=== PATIENT | female | born 1940 | race Caucasian/White ===

== ENCOUNTER → 2018-09-02 | Outpatient (CLI) | payer MEDICARE ==
--- NOTE | 2018-09-06 10:58 | SLEEPCENT ---
DATE OF PROCEDURE: 09/02/2018 ORDERING PROVIDER: Isabel Oglesby NP Nocturnal polysomnography was performed for retitration of pressure therapy in this patient with obstructive sleep apnea syndrome. For testing, a RespirDiffbot Luana View full face mask of small size was used, 4 cm of water pressure were applied to the circuit, and the lights were extinguished. 7 hours and 13 minutes of data were reviewed. There were 236 minutes of sleep identified. Sleep latency was short at 10 minutes. Rapid eye movement (REM) latency was prolonged at 323 minutes. Sleep architecture improved late in the study. There were two REM cycles noted. Overall sleep efficiency was reduced at 55.5% due to a period of wake in the middle portion of the test. The patient's electrocardiogram showed a sinus rhythm with an average heart rate of 64 beats per minute. Electroencephalogram (EEG) showed some coarsening in background but no focal events. There were normal waveforms for awake and sleep. Respiratory events were fully palliated with CPAP at a pressure of +12. CPAP tolerance appeared reasonably good. IMPRESSION: Obstructive sleep apnea syndrome (G47.33). RECOMMENDATIONS: Nightly use of pressure therapy 12 cm of water.
== END ==
LOC: M SLEEP 19:37
PROVIDERS: ATTEND Nurse Practitioner Adult Health
DX: G47.33 Obstructive sleep apnea (adult) (pediatric) (principal)

== ENCOUNTER → 2021-05-26 | Outpatient (CLI) | payer MEDICARE ==
[~2021-05-26] MED LIST: ASPI81TA26 PO; ATOR1TAB21 PO; B-122500 PO; D31000TA2 PO; DIGO0.253 PO; EZET10TA21 PO; FURO40TA2 PO; METF500T13 PO; METO1TAB7 PO; MM S100C PO; POTA1TAB23 PO; RANO500T2 PO; VITA100T14 PO
--- NOTE | 2021-05-26 17:31 | REP ---
INDICATION: IG6 KANPPA MGUS Multiple myeloma. COMPARISON: None. TECHNIQUE: Adult bone survey including AP views of the pelvis, bilateral humeri and femurs as well as AP/lateral views of the skull, and cervical through lumbosacral spine. FINDINGS: Age-related degenerative changes are noted throughout the visualized osseous structures. Findings are most pronounced involving the cervical spine. No obvious pathologic lytic, sclerotic or blastic lesions are identified. IMPRESSION: No evidence for osseous metastatic/malignant changes appreciated. <Electronically signed by Arian Thorne > 05/26/21 [id number]
== END ==
LOC: M RAD 16:28
PROVIDERS: ATTEND Internal Medicine Medical Oncology
DX: D47.2 Monoclonal gammopathy (principal); M85.80 Other specified disorders of bone density and structure, unspecified site

== ENCOUNTER → 2021-07-10 | Outpatient (REF) | payer MEDICARE ==
[2021-07-10 17:08] LABS: MAGNESIUM LEVEL 2.1 MG/DL (1.8-2.4); PHOSPHORUS LEVEL 3.3 MG/DL (2.5-4.9)
[2021-07-10 17:19] LABS: TOTAL 25(OH) VITAMIN D 39.6 NG/ML (30.0-100.0)
== END ==
LOC: M SFHCRHEU 15:47
PROVIDERS: ATTEND Internal Medicine
DX: M79.10 Myalgia, unspecified site (principal); Z79.899 Other long term (current) drug therapy
CPT/HCPCS: 82306; 82550; 83540; 83735; 84100; G0463

== ENCOUNTER 2023-09-13 09:38 | Day surgery (SDC) | payer MEDICARE ==
[~2023-09-13] VITALS: Ht 175.3 cm; Wt 73.8 kg
[~2023-09-13 09:38] MED LIST changes: +CEFUROXIME 1MG/0.1ML INTRACAMERAL INJ As Ordered ONE; +CYCLOPENTOLATE 1% OPHTH SOLN 2ML BTL OD SCH; -D31000TA2 PO; +ELIQ5TAB PO; +FLURBIPROFEN 0.03% OPHTH SOLN 2.5 ML OD SCH; +IRON65TA2 PO; +LIDOCAINE 1% SDV 5ML VIAL As Ordered ONE; +LOSA25TA13 PO; +LR 1,000 ML IV SCH; +OMEG10002 PO; +PHENYLEPHRINE 2.5% OPHTH SOL 2ML OD SCH; +TETRACAINE 0.5% OPHTH SOLN 4ML OD SCH; +VITA100093 PO
[2023-09-13] MEDS ORDERED: MIDAZOLAM INJ 2MG/2ML VIAL As Ordered ONE (11:44)
[2023-09-13 13:32] VITALS: BP 140/71; TEMP 98.1; O2SAT 100
== END 2023-09-13 14:00 | disposition home or self-care (01) ==
LOC: M SDC 09:38
PROVIDERS: ATTEND Ophthalmology
DX: H25.11 Age-related nuclear cataract, right eye (principal); I48.91 Unspecified atrial fibrillation; I10 Essential (primary) hypertension; E78.5 Hyperlipidemia, unspecified; E11.9 Type 2 diabetes mellitus without complications; Z95.0 Presence of cardiac pacemaker; Z86.73 Personal history of transient ischemic attack (TIA), and cerebral infarction without residual deficits; G47.33 Obstructive sleep apnea (adult) (pediatric); Z79.01 Long term (current) use of anticoagulants; Z79.899 Other long term (current) drug therapy; Z79.84 Long term (current) use of oral hypoglycemic drugs; Z86.16 Personal history of COVID-19
CPT/HCPCS: 66984; J0697; J2250; V2788

== ENCOUNTER 2023-10-04 10:55 | Day surgery (SDC) | payer MEDICARE ==
[~2023-10-04] VITALS: Ht 175.3 cm; Wt 74.5 kg
[~2023-10-04 10:55] MED LIST changes: -CEFUROXIME 1MG/0.1ML INTRACAMERAL INJ As Ordered ONE; -CYCLOPENTOLATE 1% OPHTH SOLN 2ML BTL OD SCH; -FLURBIPROFEN 0.03% OPHTH SOLN 2.5 ML OD SCH; -LIDOCAINE 1% SDV 5ML VIAL As Ordered ONE; -PHENYLEPHRINE 2.5% OPHTH SOL 2ML OD SCH; -TETRACAINE 0.5% OPHTH SOLN 4ML OD SCH
[2023-10-04] MEDS: TETRACAINE 0.5% OPHTH SOLN 4ML OS SCH (12:15)
[2023-10-04] MEDS: PHENYLEPHRINE 2.5% OPHTH SOL 2ML OS SCH (12:15)
[2023-10-04] MEDS: FLURBIPROFEN 0.03% OPHTH SOLN 2.5 ML OS SCH (12:15)
[2023-10-04] MEDS: CYCLOPENTOLATE 1% OPHTH SOLN 2ML BTL OS SCH (12:15)
[2023-10-04] MEDS ORDERED: MIDAZOLAM 5MG/ML 1ML VIAL As Ordered ONE (13:10)
[2023-10-04] MEDS: LIDOCAINE 1% SDV 5ML VIAL As Ordered ONE (13:36)
[2023-10-04] MEDS: CEFUROXIME 1MG/0.1ML INTRACAMERAL INJ As Ordered ONE (13:37)
[2023-10-04 14:03] VITALS: BP 129/69; TEMP 97.2; O2SAT 97
== END 2023-10-04 14:25 | disposition home or self-care (01) ==
LOC: M SDC 10:55
PROVIDERS: ATTEND Ophthalmology
DX: E11.36 Type 2 diabetes mellitus with diabetic cataract (principal); H25.12 Age-related nuclear cataract, left eye; I48.91 Unspecified atrial fibrillation; I10 Essential (primary) hypertension; E78.00 Pure hypercholesterolemia, unspecified; G47.30 Sleep apnea, unspecified; E11.40 Type 2 diabetes mellitus with diabetic neuropathy, unspecified; Z86.73 Personal history of transient ischemic attack (TIA), and cerebral infarction without residual deficits; Z79.84 Long term (current) use of oral hypoglycemic drugs; Z79.899 Other long term (current) drug therapy; Z79.01 Long term (current) use of anticoagulants; Z90.710 Acquired absence of both cervix and uterus; Z95.0 Presence of cardiac pacemaker; Z90.49 Acquired absence of other specified parts of digestive tract
CPT/HCPCS: 66984; J0697; J2250; V2788

== ENCOUNTER 2024-02-18 15:40 | Inpatient (IN) | payer MEDICARE ==
[~2024-02-18] VITALS: Ht 167.6 cm; Wt 84.0 kg
[2024-02-18] VITALS (7 sets, daily range): BP systolic 108–138; BP diastolic 54–69; TEMP 97.9–103.2; O2SAT 95–98
[~2024-02-18 15:40] MED LIST changes: -LR 1,000 ML IV SCH
[2024-02-18] MEDS ORDERED: CYAN-1 PO (19:17)
[2024-02-18] MEDS ORDERED: D 50CAP2 PO (19:17)
[2024-02-18] MEDS ORDERED: HOME MED LIST COMPLETE! XX SCH (19:20)
[2024-02-18 19:30] LABS: HEMATOCRIT 33.3 % (36.0-47.0); HEMOGLOBIN 10.9 g/dl (12.0-15.5); MEAN CORPUSCULAR HEMOGLOBIN 32.2 pg (27.0-33.0); MEAN CORPUSCULAR HGB CONC 32.7 g/dl (32.0-36.5); MEAN CORPUSCULAR VOLUME 98.5 fl (80.0-96.0); RED BLOOD COUNT 3.38 10^6/uL (4.00-5.40); WHITE BLOOD COUNT 8.9 10^3/uL (4.0-10.0)
[2024-02-18 19:56] LABS: ALBUMIN 2.7 G/DL (3.2-5.2); BILIRUBIN,TOTAL 2.4 MG/DL (0.3-1.2); CALCIUM LEVEL 8.4 MG/DL (8.3-10.6); CREATININE FOR GFR 1.14 MG/DL (0.55-1.30); GLOMERULAR FILTRATION RATE 48.5 (>32); MAGNESIUM LEVEL 2.3 MG/DL (1.8-2.4); POTASSIUM SERUM 3.8 MMOL/L (3.5-5.1); TOTAL PROTEIN 5.4 G/DL (5.7-8.2)
[2024-02-18 19:57] LABS: PLATELET COUNT, AUTOMATED 75 10^3/uL (150-450)
[2024-02-18 19:58] LABS: FREE T4 0.85 NG/DL (0.89-1.76); THYROID STIMULATING HORMONE 2.687 uIU/ML (0.55-4.78)
[2024-02-18 19:59] LABS: FOLATE 5.75 NG/ML (>5.4)
[2024-02-18 20:01] LABS: EOSINOPHILS 1 % (0-3); LYMPHOCYTES 9 % (16-44); MONOCYTES 1 % (0-5); NEUTROPHILS 81 % (28-66); PLATELET ESTIMATE DECREASED (NORMAL); TOXIC VACUOLATION 1+
[2024-02-18 20:03] LABS: ANISOCYTOSIS 1+
[2024-02-18] MEDS: FUROSEMIDE 20MG/2ML VIAL IV ONE (20:22)
[2024-02-18] MEDS: PIPERACILLIN/TAZOBACTAM SOD 3.375 GM in D5W MINI-BAG PLUS 50 ML IV SCH (20:40)
[2024-02-18] MEDS: RANOLAZINE 500MG ER TAB PO SCH (22:07)
[2024-02-18] MEDS: APIXABAN 5 MG TAB (ELIQUIS) PO SCH (22:07)
[2024-02-18] MEDS: ACETAMINOPHEN *IV* 1,000 MG in IV 1 EA IV ONE (23:00)
[2024-02-18] MEDS ORDERED: ACETAMINOPHEN 500 MG TAB PO ONE (23:00)
[2024-02-19] VITALS (10 sets, daily range): BP systolic 101–165; BP diastolic 51–74; TEMP 97.3–102.9; O2SAT 94–97
[2024-02-19 05:20] LABS: HEMATOCRIT 30.3 % (36.0-47.0); HEMOGLOBIN 10.1 g/dl (12.0-15.5); MEAN CORPUSCULAR HEMOGLOBIN 31.6 pg (27.0-33.0); MEAN CORPUSCULAR HGB CONC 33.3 g/dl (32.0-36.5); MEAN CORPUSCULAR VOLUME 94.7 fl (80.0-96.0); WHITE BLOOD COUNT 8.3 10^3/uL (4.0-10.0)
[2024-02-19 05:23] LABS: PLATELET COUNT, AUTOMATED 81 10^3/uL (150-450)
[2024-02-19 05:47] LABS: ALBUMIN 2.4 G/DL (3.2-5.2); BILIRUBIN,TOTAL 2.4 MG/DL (0.3-1.2); CALCIUM LEVEL 8.2 MG/DL (8.3-10.6); CREATININE FOR GFR 1.04 MG/DL (0.55-1.30); GLOMERULAR FILTRATION RATE 53.9 (>32); MAGNESIUM LEVEL 2.2 MG/DL (1.8-2.4); POTASSIUM SERUM 3.6 MMOL/L (3.5-5.1); TOTAL PROTEIN 5.1 G/DL (5.7-8.2)
[2024-02-19 05:54] LABS: BASOPHILS 1 % (0-1); LYMPHOCYTES 5 % (16-44); MONOCYTES 4 % (0-5); NEUTROPHILS 88 % (28-66)
[2024-02-19 05:55] LABS: PLATELET ESTIMATE DECREASED (NORMAL)
[2024-02-19 05:56] LABS: ANISOCYTOSIS 1+; OVALOCYTES 1+; POIKILOCYTOSIS 1+
[2024-02-19 07:44] LABS: BILIRUBIN,DIRECT 1.1 MG/DL (<0.4)
[2024-02-19] MEDS ORDERED: ENOXAPARIN 40MG/0.4ML SYRINGE (J1650 PER 10MG) SC SCH (09:00)
[2024-02-19] MEDS: FUROSEMIDE 20MG/2ML VIAL IV SCH (09:11)
[2024-02-19] MEDS: METOPROLOL SUCC (TopROL XL) 50MG **XL** TAB PO SCH (09:12)
[2024-02-19 11:45] LABS: PROCALCITONIN 4.96 ng/ml
[2024-02-19] MEDS: POTASSIUM CHLORIDE 10MEQ SR TABLET PO SCH (12:04)
[2024-02-19] MEDS: DOXYCYCLINE HYCLATE 100MG TABLET PO SCH (12:04)
[2024-02-19] MEDS: ACETAMINOPHEN TAB 650MG DOSE (2X325MG) PO PRN (12:19)
[2024-02-19] MEDS: LACTOBACILLUS ACIDOPHILUS CAP (BACID) PO SCH (17:37)
[2024-02-19] MEDS: EZETIMIBE 10MG TABLET (ZETIA) PO SCH (20:21)
[2024-02-19] MEDS: DIGOXIN 0.25 MG TAB PO SCH (20:22)
[2024-02-19] MEDS: DOCUSATE SODIUM 100MG CAPSULE PO SCH (20:22)
[2024-02-19] MEDS: ATORVASTATIN 20 MG TAB PO SCH (20:22)
[2024-02-20 03:40] VITALS: BP 127/72; TEMP 97.5; O2SAT 95
[2024-02-20 06:57] LABS: HEMATOCRIT 29.4 % (36.0-47.0); HEMOGLOBIN 9.7 g/dl (12.0-15.5); MEAN CORPUSCULAR HEMOGLOBIN 31.6 pg (27.0-33.0); MEAN CORPUSCULAR VOLUME 95.8 fl (80.0-96.0); RED BLOOD COUNT 3.07 10^6/uL (4.00-5.40); WHITE BLOOD COUNT 5.7 10^3/uL (4.0-10.0)
[2024-02-20 06:58] LABS: PLATELET COUNT, AUTOMATED 93 10^3/uL (150-450)
[2024-02-20 07:22] LABS: ALBUMIN 2.3 G/DL (3.2-5.2); CALCIUM LEVEL 8.7 MG/DL (8.3-10.6); CREATININE FOR GFR 0.97 MG/DL (0.55-1.30); GLOMERULAR FILTRATION RATE 58.4 (>32); POTASSIUM SERUM 3.8 MMOL/L (3.5-5.1); TOTAL PROTEIN 4.9 G/DL (5.7-8.2)
[2024-02-20 12:08] VITALS: BP 119/52; TEMP 97.9; O2SAT 97
[2024-02-20] MEDS: FUROSEMIDE 40MG/4ML VIAL IV ONE (17:51)
[2024-02-20 18:00] VITALS: O2SAT 94
[2024-02-20 20:00] VITALS: BP 125/56; TEMP 97.4; O2SAT 93
[2024-02-21 04:00] VITALS: BP 150/80; TEMP 97.6; O2SAT 92
[2024-02-21 06:40] LABS: HEMOGLOBIN 10.4 g/dl (12.0-15.5); MEAN CORPUSCULAR HEMOGLOBIN 31.7 pg (27.0-33.0); MEAN CORPUSCULAR HGB CONC 33.5 g/dl (32.0-36.5); MEAN CORPUSCULAR VOLUME 94.5 fl (80.0-96.0); PLATELET COUNT, AUTOMATED 104 10^3/uL (150-450); RED BLOOD COUNT 3.28 10^6/uL (4.00-5.40)
[2024-02-21 07:02] LABS: ALBUMIN 2.2 G/DL (3.2-5.2); ALKALINE PHOSPHATASE 103 U/L (46-116); ALT/SGPT 37 U/L (7.0-40); AST/SGOT 26 U/L (<34); BILIRUBIN,TOTAL 1.5 MG/DL (0.3-1.2); BLOOD UREA NITROGEN 16 MG/DL (9-23); CALCIUM LEVEL 8.7 MG/DL (8.3-10.6); CARBON DIOXIDE LEVEL 29 MMOL/L (20-31); CHLORIDE LEVEL 103 MMOL/L (98-107); CREATININE FOR GFR 0.94 MG/DL (0.55-1.30); GLOMERULAR FILTRATION RATE > 60.0 (>32); GLUCOSE, FASTING 149 MG/DL (74-106); POTASSIUM SERUM 3.4 MMOL/L (3.5-5.1); SODIUM LEVEL 139 MMOL/L (136-145); TOTAL PROTEIN 5.1 G/DL (5.7-8.2)
[2024-02-21] MEDS: POTASSIUM CHLORIDE 10MEQ SR TABLET PO ONE (07:53)
[2024-02-21 12:09] VITALS: BP 127/60; TEMP 97.2; O2SAT 94
[2024-02-21 20:00] VITALS: BP 147/67; TEMP 97.7; O2SAT 95
[2024-02-22 04:00] VITALS: BP 152/68; TEMP 97.7; O2SAT 94
[2024-02-22 08:03] LABS: HEMATOCRIT 31.8 % (36.0-47.0); HEMOGLOBIN 10.4 g/dl (12.0-15.5); MEAN CORPUSCULAR HEMOGLOBIN 30.9 pg (27.0-33.0); MEAN CORPUSCULAR HGB CONC 32.7 g/dl (32.0-36.5); MEAN CORPUSCULAR VOLUME 94.4 fl (80.0-96.0); PLATELET COUNT, AUTOMATED 127 10^3/uL (150-450); RED BLOOD COUNT 3.37 10^6/uL (4.00-5.40); WHITE BLOOD COUNT 7.6 10^3/uL (4.0-10.0)
[2024-02-22 08:33] LABS: ALBUMIN 2.3 G/DL (3.2-5.2); ALKALINE PHOSPHATASE 99 U/L (46-116); ALT/SGPT 31 U/L (7.0-40); AST/SGOT 18 U/L (<34); BILIRUBIN,TOTAL 1.2 MG/DL (0.3-1.2); BLOOD UREA NITROGEN 13 MG/DL (9-23); CALCIUM LEVEL 9.1 MG/DL (8.3-10.6); CARBON DIOXIDE LEVEL 28 MMOL/L (20-31); CHLORIDE LEVEL 106 MMOL/L (98-107); CREATININE FOR GFR 0.85 MG/DL (0.55-1.30); GLOMERULAR FILTRATION RATE > 60.0 (>32); GLUCOSE, FASTING 136 MG/DL (74-106); POTASSIUM SERUM 3.6 MMOL/L (3.5-5.1); SODIUM LEVEL 140 MMOL/L (136-145); TOTAL PROTEIN 5.2 G/DL (5.7-8.2)
[2024-02-22] MEDS: TORSEMIDE 20 MG TAB PO SCH (11:32)
[2024-02-22 12:00] VITALS: BP 146/71; TEMP 97.7; O2SAT 97
[2024-02-22] MEDS: cefTRIAXone SOD 2 GM in D5W MINI-BAG PLUS 50 ML IV SCH (14:45)
[2024-02-22 20:00] VITALS: BP 143/66; TEMP 98.4; O2SAT 96
[2024-02-22] MEDS ORDERED: GLUCAGON INJ 1MG VIAL SC PRN (20:20)
[2024-02-22] MEDS ORDERED: GLUCOSE 4 GM CHEW PO PRN (20:20)
[2024-02-22] MEDS ORDERED: DEXTROSE 50% 50ML SYRINGE IV PRN (20:20)
[2024-02-22] MEDS: INSULIN LISPRO (NovoLOG) PER UNIT SC SCH (21:00)
[2024-02-23 04:00] VITALS: BP 157/78; TEMP 97.5; O2SAT 94
[2024-02-23] MEDS: INSULIN LISPRO (NovoLOG) PER UNIT SC SCH (08:35)
[2024-02-23] MEDS: POTASSIUM CHLORIDE 10MEQ SR TABLET PO SCH (08:35)
[2024-02-23 12:00] VITALS: BP 147/70; TEMP 97.5; O2SAT 92
[2024-02-23 20:00] VITALS: BP 137/82; TEMP 97.7; O2SAT 92
[2024-02-24 04:00] VITALS: BP 145/63; TEMP 98.1; O2SAT 90
[2024-02-24] MEDS: LevoFLOXacin 750 MG TABLET PO SCH (06:31)
[2024-02-24 07:32] LABS: BLOOD UREA NITROGEN 10 MG/DL (9-23); CALCIUM LEVEL 9.6 MG/DL (8.3-10.6); CARBON DIOXIDE LEVEL 29 MMOL/L (20-31); CHLORIDE LEVEL 104 MMOL/L (98-107); CREATININE FOR GFR 0.85 MG/DL (0.55-1.30); GLOMERULAR FILTRATION RATE > 60.0 (>32); GLUCOSE, FASTING 144 MG/DL (74-106); POTASSIUM SERUM 4.1 MMOL/L (3.5-5.1); SODIUM LEVEL 139 MMOL/L (136-145)
[2024-02-24 12:00] VITALS: BP 145/60; TEMP 97.9; O2SAT 94
[2024-02-24 19:25] VITALS: BP 161/68; TEMP 98.8; O2SAT 90
[2024-02-24 20:33] VITALS: BP 121/63; TEMP 97.9; O2SAT 93
[2024-02-25 04:00] VITALS: TEMP 97.9; O2SAT 95
[2024-02-25 12:00] VITALS: BP 141/70; TEMP 97.5; O2SAT 92
[2024-02-25 20:00] VITALS: BP 157/68; TEMP 97.9; O2SAT 95
[2024-02-26 04:35] VITALS: BP 145/67; TEMP 97.9; O2SAT 94
[2024-02-26] MEDS: BENZONATATE 100MG CAPSULE PO SCH (09:00)
[2024-02-26 12:00] VITALS: BP 130/67; TEMP 97.9; O2SAT 93
[2024-02-26 20:19] VITALS: BP 135/63; TEMP 97.9; O2SAT 94
[2024-02-27 04:00] VITALS: BP_SYST 135; BP_SYST 138; BP_DIAS 63; BP_DIAS 64; TEMP 97.9; O2SAT 97
[2024-02-27 07:26] LABS: CALCIUM LEVEL 9.7 MG/DL (8.3-10.6); CREATININE FOR GFR 0.96 MG/DL (0.55-1.30); GLOMERULAR FILTRATION RATE 59.1 (>32); MAGNESIUM LEVEL 2.1 MG/DL (1.8-2.4); POTASSIUM SERUM 4.6 MMOL/L (3.5-5.1)
[2024-02-27] MEDS: TORSEMIDE 20 MG TAB PO SCH (08:52)
[2024-02-27] MEDS: NS 500 ML IV ONE (09:45)
[2024-02-27 11:16] LABS: HEMATOCRIT 38.9 % (36.0-47.0); HEMOGLOBIN 12.6 g/dl (12.0-15.5); MEAN CORPUSCULAR HGB CONC 32.4 g/dl (32.0-36.5); MEAN CORPUSCULAR VOLUME 95.6 fl (80.0-96.0); PLATELET COUNT, AUTOMATED 198 10^3/uL (150-450); RED BLOOD COUNT 4.07 10^6/uL (4.00-5.40); WHITE BLOOD COUNT 8.9 10^3/uL (4.0-10.0)
[2024-02-27 12:00] VITALS: BP 125/65; TEMP 99.5; O2SAT 97
[2024-02-27 13:00] VITALS: O2SAT 94
[2024-02-27 20:27] VITALS: BP 149/70; TEMP 98.1; O2SAT 96
[2024-02-28 04:17] VITALS: BP 145/70; TEMP 98.1; O2SAT 93
[2024-02-28 08:12] VITALS: BP 135/60
[2024-02-28 12:00] VITALS: BP 124/53; TEMP 97.7; O2SAT 91
== END 2024-02-28 17:14 | DRG 871 ==
LOC: M ICU 17:35 → M MSPAV 02-19 16:06
PROVIDERS: ADMIT Internal Medicine Pulmonary Disease; ATTEND Internal Medicine
DX: A41.59 Other Gram-negative sepsis (principal); I50.33 Acute on chronic diastolic (congestive) heart failure; J18.9 Pneumonia, unspecified organism; N17.9 Acute kidney failure, unspecified; N39.0 Urinary tract infection, site not specified; E87.1 Hypo-osmolality and hyponatremia; F03.90 Unspecified dementia, unspecified severity, without behavioral disturbance, psychotic disturbance, mood disturbance, and anxiety; I11.0 Hypertensive heart disease with heart failure; R65.20 Severe sepsis without septic shock; D69.6 Thrombocytopenia, unspecified; I25.10 Atherosclerotic heart disease of native coronary artery without angina pectoris; E78.5 Hyperlipidemia, unspecified; I48.91 Unspecified atrial fibrillation; E03.9 Hypothyroidism, unspecified; D64.9 Anemia, unspecified; B96.20 Unspecified Escherichia coli [E. coli] as the cause of diseases classified elsewhere; Z95.1 Presence of aortocoronary bypass graft; E11.9 Type 2 diabetes mellitus without complications; Z88.8 Allergy status to other drugs, medicaments and biological substances; Z79.899 Other long term (current) drug therapy; Z86.16 Personal history of COVID-19; Z98.49 Cataract extraction status, unspecified eye; Z95.0 Presence of cardiac pacemaker; I27.20 Pulmonary hypertension, unspecified; F41.9 Anxiety disorder, unspecified; E87.6 Hypokalemia

== ENCOUNTER 2024-10-18 09:51 | Emergency (ER) | payer MEDICARE ==
[~2024-10-18] VITALS: Ht 175.3 cm; Wt 79.1 kg
[~2024-10-18 09:51] MED LIST changes: +CYAN-1 PO; +D 50CAP2 PO
[2024-10-18 09:57] VITALS: TEMP 98.6
[2024-10-18] MEDS: TETRACAINE 0.5% OPHTH SOLN 4ML OS ONE (12:30)
[2024-10-18] MEDS: FLUORESCEIN OPHTH 1MG STRIP OS ONE (12:30)
[2024-10-18 12:58] LABS: BASO % 0.3 % (0.0-1.0); EOS # 0.1 10^3/uL (0.0-0.5); EOS % 1.4 % (0.0-3.0); HEMATOCRIT 41.5 % (36.0-47.0); HEMOGLOBIN 13.7 g/dl (12.0-15.5); LYMPH % 31.1 % (24.0-44.0); MEAN CORPUSCULAR HEMOGLOBIN 31.8 pg (27.0-33.0); MEAN CORPUSCULAR VOLUME 96.3 fl (80.0-96.0); MONO # 0.7 10^3/uL (0.0-0.8); MONO % 7.5 % (2.0-8.0); NEUTROPHILS # 5.7 10^3/uL (1.5-8.5); NEUTROPHILS % 59.4 % (36.0-66.0); PLATELET COUNT, AUTOMATED 200 10^3/uL (150-450); RED BLOOD COUNT 4.31 10^6/uL (4.00-5.40); WHITE BLOOD COUNT 9.6 10^3/uL (4.0-10.0)
[2024-10-18] MEDS ORDERED: ISOVUE-370 76% 100ML VIAL As Ordered ONE (12:58)
[2024-10-18 13:04] LABS: ERYTHROCYTE SEDIMENTATION RATE 18 mm/hr (0-30)
[2024-10-18 14:38] LABS: KETONE, URINE AUTO RFX NEGATIVE (NEGATIVE); RBC, URINE AUTO RFX 2 /HPF (0-3); SQUAM EPITHELIAL CELL UR AURFX 1 /HPF (0-6)
[2024-10-18 14:54] LABS: LEUKOCYTE ESTERASE UR AUTO RFX 3+ (NEGATIVE); NITRITE, URINE AUTO RFX POSITIVE (NEGATIVE); WBC, URINE AUTO RFX 173 /HPF (0-3)
[2024-10-18] MEDS: ASPIRIN 81MG CHEW TABLET PO ONE (15:30)
[2024-10-18 16:45] VITALS: BP 146/69; O2SAT 99
[2024-10-18] MEDS ORDERED: CEFD1CAP9 PO (16:46)
[2024-10-18] MEDS ORDERED: ASPI81TA26 PO (16:46)
== END 2024-10-18 17:07 | disposition home or self-care (01) ==
LOC: M ED 09:51
DX: N39.0 Urinary tract infection, site not specified (principal); H49.02 Third [oculomotor] nerve palsy, left eye; I10 Essential (primary) hypertension; E11.9 Type 2 diabetes mellitus without complications; G47.30 Sleep apnea, unspecified; Z86.79 Personal history of other diseases of the circulatory system; Z88.8 Allergy status to other drugs, medicaments and biological substances; Z79.01 Long term (current) use of anticoagulants; Z79.82 Long term (current) use of aspirin; Z79.02 Long term (current) use of antithrombotics/antiplatelets; Z79.4 Long term (current) use of insulin; Z79.2 Long term (current) use of antibiotics; Z79.899 Other long term (current) drug therapy; R29.810 Facial weakness
CPT/HCPCS: 36415; 70450; 70481; 80047; 81001; 85025; 85652; 86140; 87088; 87186; 93880; 99285; Q9967